=== PATIENT | male | born 1955 | race Caucasian/White ===

== ENCOUNTER 2016-10-20 22:26 | Emergency (ER) | payer BC ==
[~2016-10-20] VITALS: Ht 162.6 cm; Wt 68.2 kg
[2016-10-20 22:33] VITALS: Ht 162.6 cm; Wt 68.2 kg
[2016-10-20] MEDS ORDERED: ALLO300T2 PO (22:45)
[2016-10-20] MEDS ORDERED: SOD CHLORIDE 0.9% 1,000 ML IV STA (23:38)
[2016-10-21] MEDS ORDERED: CEFAZOLIN 1 GM/50 ML (PMX) 50 ML IVPB SCH
[2016-10-21 00:07] LABS: ADD SCAN DIFF NO
[2016-10-21 00:08] LABS: BASOPHILS % 0.6 % (0.0-2.0); EOSINOPHILS # 0.1 10^3/ul (0.0-0.5); EOSINOPHILS % 2.6 % (0.0-7.0); HEMATOCRIT 44.6 % (42.0-52.0); HEMOGLOBIN 16.5 g/dl (14.0-18.0); LYMPHOCYTES # 2.3 10^3/ul (0.8-2.9); LYMPHOCYTES % 47.2 % (15.0-51.0); MEAN CORPUSCULAR HEMOGLOBIN 30.6 pg (29.0-33.0); MEAN CORPUSCULAR VOLUME 82.6 fl (82.0-101.0); MEAN PLATELET VOLUME 10.4 fl (7.4-10.4); MONOCYTE # 0.4 10^3/ul (0.3-0.9); MONOCYTES % 7.9 % (0.0-11.0); NEUTROPHILS % 40.7 % (39.0-77.0); PLATELET COUNT 183 10^3/UL (140-415); RED CELL DISTRIBUTION WIDTH 12.3 % (11.5-14.5)
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
--- NOTE | 2016-10-21 00:10 | RADRPT ---
PROCEDURE: XR Wrist. CLINICAL INDICATION: Injury. Possible fracture. TECHNIQUE: AP, lateral and oblique views of the left wrist were performed. COMPARISON: No prior studies are available for comparison. FINDINGS: No evidence of fracture, dislocation, or subluxation is seen. The bones appear well mineralized. The joint spaces are well preserved. Mild soft tissue swelling is present. RPTAT:HJJR IMPRESSION: Mild soft tissue swelling without acute osseous abnormality of the left wrist. Physician Neelima Date Time Electronically viewed and signed by Physician Neelima on 10/21/2016 00:10 JR/
--- NOTE | 2016-10-21 00:10 | RADRPT ---
PROCEDURE: XR Chest. CLINICAL INDICATION: Chest pain. Trauma TECHNIQUE: Portable AP view of the chest was obtained. COMPARISON: None. FINDINGS: The cardiomediastinal silhouette is within normal limits. The lungs are clear. There is no evidenc e for pleural effusion, pneumothorax or pulmonary vascular congestion. The osseous structures are i ntact with no evidence for acute abnormality. RPTAT:HJJR IMPRESSION: No evidence for acute intrathoracic pathology. Physician Neelima Date Time Electronically viewed and signed by Aditya Jose Physician on 10/21/2016 00:09 JR/
--- NOTE | 2016-10-21 00:13 | RADRPT ---
PROCEDURE: XR Hand. CLINICAL INDICATION: Post traumatic left hand pain TECHNIQUE: PA, oblique and lateral views of the left hand were obtained. COMPARISON: None available. FINDINGS: Mineralization is within normal limits. Comminuted fracture involving the distal phalanx of the thir d digit is present sparing the interphalangeal joint surface. The appearance of amputation involvin g the fifth phalanges from the level of the mid middle phalanx is seen. There is no evidence of kianna nt dislocation. The soft tissues are unremarkable. There is no evidence of radiopaque foreign body RPTAT:HJJR IMPRESSION: 1. Acute comminuted extra-articular tuft fracture involving the third distal phalanx of the left ochoa d. 2. Nonvisualization of the distal portion of the middle phalanx and distal phalanx of the fifth fing er likely the sequela of prior surgery of trauma. Physician Neelima Date Time Electronically viewed and signed by Physician Neelima on 10/21/2016 00:13 /
[2016-10-21] MEDS ORDERED: SOD CHLORIDE 0.9% 100 ML ONE (00:38)
--- NOTE | 2016-10-21 00:38 | RADRPT ---
PROCEDURE: CT Brain without contrast. CLINICAL INDICATION: Trauma. Pain. TECHNIQUE: Serial axial computed tomographic images of the brain was performed on a multidetector CT scanner from the skull base through the vertex without contrast. Exam CTDlvol = 45 mGy and DLP = 720 mGy-cm. One of the following 3 dose reduction techniques were used: Automated exposure contro l; adjustment of the mA and/or kV according to patient size; or use of iterative reconstruction tech nique. COMPARISON: None. FINDINGS: There is no fracture. There is age appropriate central and peripheral volume loss. There is no mid line shift. There are no focal parenchymal abnormalities. There is no acute stroke. No acute intr acranial hemorrhage or abnormal extra-axial fluid collection. No fracture is identified. Visualize d paranasal sinuses are clear. IMPRESSION: 1. No acute post-traumatic abnormality. RPTAT: HMVK .Brian Langford MD, Date Time Electronically viewed and signed by .Brian Langford MD, on 10/21/2016 00:38 .K/
[2016-10-21] MEDS ORDERED: IODIXANOL LOCM 100 ML BTL ONE (00:39)
[2016-10-21 00:43] LABS: ALBUMIN 4.2 g/dl (3.3-4.9); POTASSIUM 3.6 mmol/L (3.5-5.1)
[2016-10-21 00:44] LABS: INR 0.95; PROTIME 12.7 Sec (12.2-14.2)
[2016-10-21 00:45] LABS: CREATININE 0.7 mg/dl (0.61-1.24); PARTIAL THROMBOPLASTIN TIME 26.4 Sec (25.0-35.0)
[2016-10-21 00:46] LABS: BILIRUBIN,INDIRECT 0.3 mg/dl (0-1.1); BILIRUBIN,TOTAL 0.3 mg/dl (0.2-1.3); CALCIUM 9.2 mg/dl (8.4-10.2); TOTAL PROTEIN 6.7 g/dl (6.1-8.1)
--- NOTE | 2016-10-21 00:46 | RADRPT ---
PROCEDURE: CT cervical spine without contrast CLINICAL INDICATION: Trauma. Pain. TECHNIQUE: CT scan of the cervical spine was performed on a multidetector scanner. No IV contrast was administered. Coronal and sagittal reformatted images were obtained from the axial source imag es. Images were reviewed on a high-resolution PACS workstation. Exam CTDlvol = 22 mGy and DLP = 120 mGy-cm. One of the following 3 dose reduction techniques were used: Automated exposure control; adjustment of the mA and/or kV according to patient size; or use of iterative reconstruction techniq ue. COMPARISON: None available FINDINGS: There is no fracture. Alignment is maintained. There is no spondylolisthesis. There is maintenanc e of height of the vertebral bodies. There is mild diffuse left sided facet changes throughout the cervical spine. There are anterior osteophytes greatest at C4-5 and C5-6. Bone mineralization is within normal limits. Prevertebral soft tissues are unremarkable. IMPRESSION: 1. No acute post traumatic abnormality. 2. Mild degenerative changes. RPTAT: MVK .Brian Langford MD, Date Time Electronically viewed and signed by .Brian Langford MD, on 10/21/2016 00:46 .K/
--- NOTE | 2016-10-21 01:09 | RADRPT ---
PROCEDURE: CT Abdomen and Pelvis with IV contrast. CLINICAL INDICATION: Trauma. Pain. TECHNIQUE: CT scan of the abdomen and pelvis was performed on a multidetector CT scanner. The pat ient was scanned following the uncomplicated administration of 100 cc Visipaque 300 intravenous cont rast material. Coronal and sagittal reformatted images were obtained from the axial source images. Images were reviewed on a high-resolution PACS workstation. Exam CTDlvol = 14 mGy and DLP = 792 mGy -cm. One of the following 3 dose reduction techniques were used: Automated exposure control; adjust ment of the mA and/or kV according to patient size; or use of iterative reconstruction technique. COMPARISON: X-ray pelvis 10/20/2016 FINDINGS: There is no obstruction or ileus. The appendix is visualized and normal in appearance, without evid ence for acute appendicitis.. There is no evidence for diverticulitis. There is no free fluid. Th ere is no lymphadenopathy. The liver is overall normal in size. Liver is diffusely hypodense/fatty. No intrahepatic lesions a re identified. The gallbladder is normal in appearance. There is no definite biliary ductal dilation . Pancreas is unremarkable. Spleen is normal in size and appearance. There are no adrenal masses. The aorta is unremarkable. There is 6 mm cortical cyst in mid pole left kidney. There are bilateral punctate nonobstructing re nal calcifications. Kidneys are otherwise normal in appearance without hydronephrosis, mass or obstr ucting calculus. There is normal symmetric homogeneous renal parenchymal enhancement. There is no perinephric collection. Ureters are of normal caliber in appearance. Urinary bladder is distended. Limited evaluation lung bases demonstrates mild bibasilar atelectasis.. There are no acute fractures. There degenerative changes lower lumbar spine. IMPRESSION: 1. No acute post-traumatic abnormality. 2. Fatty liver. 3. Nonobstructing renal calcifications. Left renal cyst. No obstructive uropathy. Distended urina ry bladder. RPTAT: HMVK .Brian Langford MD, Date Time Electronically viewed and signed by .Brian Langford MD, on 10/21/2016 01:08 .K/
[2016-10-21 01:59] LABS: ADD UMIC NO; URINE BILIRUBIN (Dip) NEGATIVE (NEGATIVE); URINE BLOOD (Dip) NEGATIVE (NEGATIVE); URINE COLOR LT. YELLOW (YELLOW); URINE GLUCOSE (Dip) >=1000 % (NEGATIVE); URINE KETONES (Dip) NEGATIVE (NEGATIVE); URINE LEUKOCYTE ESTERASE (Dip) NEGATIVE (NEGATIVE); URINE NITRITE (Dip) NEGATIVE (NEGATIVE); URINE TOTAL PROTEIN (Dip) NEGATIVE (NEGATIVE); URINE UROBILINOGEN (Dip) 0.2 E.U./dL (0.1-1.0)
[2016-10-21] MEDS ORDERED: LIDOCAINE 1% (MDV) 20 ML INJ SC ONE (06:00)
[2016-10-21] MEDS ORDERED: NAPR-688 PO (07:01)
[2016-10-21] MEDS ORDERED: HYDR-906 PO (07:01)
[2016-10-21] MEDS ORDERED: BACTDS PO (07:01)
[2016-10-21] MEDS ORDERED: CEPH-443 PO (07:01)
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
[2016-10-21 08:06] VITALS: BP 149/84; PULSE 70; RESP 18; TEMP 98.6
== END 2016-10-21 08:07 | disposition home or self-care (01) ==
LOC: E/R 22:26
DX: S61.313A Laceration without foreign body of left middle finger with damage to nail, initial encounter (principal); F10.129 Alcohol abuse with intoxication, unspecified; E11.65 Type 2 diabetes mellitus with hyperglycemia; J45.909 Unspecified asthma, uncomplicated; R51 Headache; S62.633B Displaced fracture of distal phalanx of left middle finger, initial encounter for open fracture; V43.02XA Car driver injured in collision with other type car in nontraffic accident, initial encounter
CPT/HCPCS: 11760; 70450; 71010; 72125; 72170; 73110; 73130; 74177; 80048; 80076; 80306; 81003; 82962; 85025; 85610; 85730; 96365; 99285; J0690; J7030; Q9967